=== PATIENT | male | born 1980 | race Caucasian/White ===

== ENCOUNTER 2022-03-16 18:38 | Emergency (ER) | payer SELFPAY ==
[~2022-03-16] VITALS: Ht 157.5 cm; Wt 68.0 kg
--- NOTE | 2022-03-16 18:44 | NUR ---
BIBRA 82 FROM HOME NOT ACTING NORMAL, BIZARRE BEHAVIOR, RESTLESS, AND AGITATED. PT WAS PHYSICALLY AGRRESSIVE WITH STAFF, SECURITY CALLED. PT ATTACHED TO MONITOR, HR ELEVATED, NO RESP DISTRESS NOTED. AWAITING MD ORDERS.
--- NOTE | 2022-03-16 18:52 | NUR ---
URINE COLLECTED AND SENT
[2022-03-16] MEDS ORDERED: diphenhydrAMINE HCL 50 MG/ML VIAL ONE (18:53)
[2022-03-16] MEDS ORDERED: LORAZEPAM INJ 2 MG/ML VIAL ONE (18:54)
[2022-03-16] MEDS ORDERED: HALOPERIDOL LACTATE INJ 5 MG/ML VIAL ONE (18:54)
[2022-03-16] MEDS ORDERED: diphenhydrAMINE HCL 50 MG/ML VIAL IM ONE (19:00)
[2022-03-16] MEDS ORDERED: LORAZEPAM INJ 2 MG/ML VIAL IM ONE (19:00)
[2022-03-16] MEDS ORDERED: HALOPERIDOL LACTATE INJ 5 MG/ML VIAL IM ONE (19:00)
--- NOTE | 2022-03-16 19:12 | NUR ---
IV ESTABLISHED 14G R AC, LABS DRAWN AND COLLECTED AT BEDSIDE
--- NOTE | 2022-03-16 19:13 | NUR ---
LAB AT BEDSIDE
[2022-03-16 19:54] LABS: BILIRUBIN,URINE NEGATIVE (NEGATIVE); COLOR,URINE YELLOW (YELLOW); LEUKOCYTE ESTERASE ,URINE NEGATIVE (NEGATIVE); NITRITE, URINE NEGATIVE (NEGATIVE); PH,URINE 7.5 (5.0-8.0); PROTEIN,URINE NEGATIVE (NEGATIVE); UGLUCOSE NEGATIVE (NEGATIVE); UROBILINOGEN,URINE 0.2 EU/dL (0.2)
[2022-03-16 20:10] LABS: BASOPHILS % (AUTO) 0.2 % (0.0-2.0); EOSINOPHILS % (AUTO) 0.1 % (0.0-6.0); HEMATOCRIT 42 % (39-51); HEMOGLOBIN 13.7 g/dL (13.5-17.5); LYMPHOCYTES # (AUTO) 1.7 K/uL (0.8-4.8); LYMPHOCYTES % (AUTO) 18.7 % (20.0-44.0); MEAN CORPUSCULAR HGB CONC 33 g/dl (31.0-36.0); MEAN CORPUSCULAR VOLUME 85 fL (80-96); MONOCYTES # (AUTO) 0.6 K/uL (0.1-1.30); NEUTROPHILS # (AUTO) 6.8 K/uL (1.8-8.9); PLATELET COUNT (AUTO) 370 K/uL (150-450); WHITE BLOOD COUNT (AUTO) 9.2 K/uL (4.3-11.0)
[2022-03-16 20:15] LABS: BACTERIA,URINE None seen /HPF (None Seen); WBC,URINE 0-2 /HPF (0-3)
[2022-03-16 20:42] LABS: CALCIUM, SERUM 9.3 mg/dL (8.5-10.1); CARBON DIOXIDE 25 mmol/L (21-32); CHLORIDE 98 mmol/L (98-107); CREATININE 1.3 mg/dL (0.6-1.3); GLUCOSE 107 mg/dL (74-106); POTASSIUM 3.4 mmol/L (3.5-5.1); SODIUM SERUM 135 mmol/L (136-145); UREA NITROGEN, BLOOD 13 mg/dL (7-18)
[2022-03-16 20:48] LABS: ALANINE AMINOTRANSFERASE 23 U/L (12-78); ALBUMIN 4.1 g/dL (3.4-5.0); ALCOHOL, BLOOD < 3 mg/dL (0-0); ALKALINE PHOSPHATASE 45 U/L (46-116); ASPARTATE AMINOTRANSFERASE 19 U/L (15-37); BILIRUBIN,DIRECT 0.2 mg/dL (0.0-0.2); BILIRUBIN,TOTAL 0.8 mg/dL (0.2-1.0); TOTAL PROTEIN, SERUM 7.4 g/dL (6.4-8.2)
[2022-03-17 05:00] VITALS: BP 123/65
--- NOTE | 2022-03-17 05:52 | NUR ---
Patient discharged to home in stable condition. Written and verbal after care instructions given. Patient verbalizes understanding of instruction.
== END 2022-03-17 05:53 | disposition home or self-care (01) ==
LOC: ER 18:46
DX: F19.959 Other psychoactive substance use, unspecified with psychoactive substance-induced psychotic disorder, unspecified (principal); F15.10 Other stimulant abuse, uncomplicated; R45.1 Restlessness and agitation; R45.6 Violent behavior; E87.6 Hypokalemia
CPT/HCPCS: 99291; 96372 ×2; 85025; 80048; 80076; 81001; 36415; 80143; 80320; 80307; J2060; J1200; J1630; J7030; G0480